=== PATIENT | male | born 1970 | race American Indian/Alaskan Native ===

== ENCOUNTER 2017-03-28 18:29 | Emergency (ER) | payer SELFPAY ==
[2017-03-28] MEDS ORDERED: DILAUDID IV ONE ×2 (19:12→21:23)
[2017-03-28] MEDS ORDERED: NACL 0.9% 1000 ML 1,000 ML IV ONE (19:12)
[2017-03-28] MEDS ORDERED: ZOFRAN IV ONE (19:12)
[2017-03-28] MEDS ORDERED: PROTONIX IV ONE (19:13)
--- NOTE | 2017-03-28 19:15 | Emergency Department Report ---
HPI - General Chief Complaint: Abdominal Pain Time Seen by Provider: 03/28/17 19:11 - HPI HPI: She is a 46-year-old -[place] male who presented to the ED with left upper quadrant abdominal pain. Pain has started for 3 weeks and has increasingly worsened. Patient has not tried any medication for his symptoms. He stated that the pain is located left upper quadrant 5 out of 10 radiating stool left lower quadrant. Pain is not accompanied with any vomiting, nausea and diarrhea. Patient describes the quality of pain as sharp without any exacerbating or alleviating factors. Patient denies any anorexia pain appears to be colicky in nature. no Constipation. ED Past Medical Hx - Past Medical History Previous Medical History?: Yes Hx Hypertension: Yes Hx Arthritis: Yes - Surgical History Past Surgical History?: Yes Additional Surgical History: Hernia repair in 2000 - Social History Smoking Status: Never Smoker Substance Use Type: Alcohol - Medications Home Medications: Home Medications Medication Instructions Recorded Confirmed Last Taken Type Lisinopril [Zestril TAB] 40 mg PO QDAY 03/28/17 03/28/17 03/28/17 History Omeprazole 40 mg PO DAILY #30 capsule. 03/28/17 Unknown Rx traMADol [Ultram 50 MG tab] 50 mg PO Q6HR PRN #14 tablet 03/28/17 Unknown Rx ED Review of Systems ROS: Stated complaint: ABDOMINAL/BACK PAIN Other details as noted in HPI Comment: All other systems reviewed and negative Cardiovascular: chest pain Gastrointestinal: abdominal pain Physical Exam - Physical Exam Vital Signs: Vital Signs 03/28/17 18:41 Temperature 98.3 F Pulse Rate 114 H Respiratory 20 Rate Blood Pressure 120/65 O2 Sat by Pulse 97 Oximetry Physical Exam: Vital signs reviewed. Gen. alert and oriented 3 in no distress Head atraumatic normocephalic Eyes PERR LA EOMI Chest regular rate and rhythm normal S1-S2 lungs clear bilaterally Abdomen soft nondistended, left upper quadrant tenderness. Right lower quadrant palpated with conviction showed no tenderness rebound or guarding. Back no point tenderness paravertebral tenderness Neuro no focal deficit. Psych normal mood. ED Course Vital Signs 03/28/17 18:41 Temperature 98.3 F Pulse Rate 114 H Respiratory 20 Rate Blood Pressure 120/65 O2 Sat by Pulse 97 Oximetry - Reevaluation(s) Reevaluation #1: 03/28/17 23:26 Discussed at length patient's CT finding with him, Jose Angel that since he isn't having any right lower quadrant pain, no fever, or white count, acute appendicitis is very unlikely. I discussed the CT findings along with the patient's clinical presentation to the surgeon weatherization crew leader . He Agreed That the Appendicitis Is Very Unlikely in This Case and That He Recommended the Patient Follow-Up with Him in the Office Tomorrow Morning. He Agrees to See the Patient. This Was Again Discussed with the Patient Was Agreed with This Plan. Return to ED with Fever Worsening Pain. ED Medical Decision Making - Lab Data Result diagrams: 03/28/17 19:24 03/28/17 19:24 Critical care attestation.: If time is entered above; I have spent that time in minutes in the direct care of this critically ill patient, excluding procedure time. ED Disposition Clinical Impression: Abdominal pain, Gastritis Disposition: DC-01 TO HOME OR SELFCARE Is pt being admited?: No Does the pt Need Aspirin: No Condition: Stable Instructions: Gastritis (ED) Prescriptions: Omeprazole 40 mg PO DAILY #30 capsule. traMADol [Ultram 50 MG tab] 50 mg PO Q6HR PRN #14 tablet PRN Reason: Pain Referrals: DANIEL CABALLERO MD [Staff Physician] - 3-5 Days LEIGHANN SHIRLEY MD [Staff Physician] - 3-5 Days Forms: Work/School Release Form(ED)
[2017-03-28 19:57] LABS: Basophils % (Auto) 0.6 % (0.0-1.8); Eosinophils % (Auto) 1.4 % (0.0-4.3); Hematocrit 41.9 % (35.5-45.6); Hemoglobin 14.5 gm/dl (11.8-15.2); Mean Corpuscular HGB Conc 35 % (32-34); Mean Corpuscular Hemoglobin 30 pg (28-32); Mean Corpuscular Volume 85 fl (84-94); Platelet Count 250 K/mm3 (140-440); Red Blood Count 4.91 M/mm3 (3.65-5.03); White Blood Count 8.2 K/mm3 (4.5-11.0)
[2017-03-28 20:11] LABS: INR 1.08 (0.87-1.13)
[2017-03-28 20:12] LABS: Partial Thromboplastin Time 30.9 Sec. (24.2-36.6)
--- NOTE | 2017-03-28 20:23 | XRay Report ---
FINAL REPORT PROCEDURE: Chest. TECHNIQUE: Chest radiograph anteroposterior view. CPT 82542 HISTORY: Chest pain. COMPARISON: No prior studies are available for comparison. FINDINGS: The radiograph is slightly underpenetrated. The heart and mediastinum appear normal. The lungs are grossly clear. There are no pleural effusions. The regional skeleton appears intact. IMPRESSION: No evidence of acute disease.
[2017-03-28 20:33] LABS: Alanine Aminotransferase 76 units/L (7-56); Albumin/Globulin Ratio 1.1 %; Alkaline Phosphatase 68 units/L (35-129); Anion Gap 18 mmol/L; BUN/Creatinine Ratio 9.09; Blood Urea Nitrogen 10 mg/dL (9-20); Calcium 9.3 mg/dL (8.4-10.2); Carbon Dioxide 27 mmol/L (22-30); Chloride 100.1 mmol/L (98-107); Glucose 111 mg/dL (75-100); Potassium 4.3 mmol/L (3.6-5.0); Sodium 141 mmol/L (137-145); Total Protein 7.7 g/dL (6.3-8.2)
[2017-03-28 22:19] VITALS: BP 118/77
--- NOTE | 2017-03-28 22:28 | Cat Scan Report ---
FINAL REPORT PROCEDURE: CT abdomen and pelvis with contrast. TECHNIQUE: Computerized axial tomography of the abdomen and pelvis was performed after the IV injection of iodinated nonionic contrast. HISTORY: Severe abdominal pain. COMPARISON: No prior studies are available for comparison. FINDINGS: The lung bases are clear. There are no pleural effusions. The heart size is normal. The liver, spleen and pancreas appear normal. The gallbladder is present. The adrenal glands are not enlarged. Both kidneys appear normal in size and configuration. The abdominal aorta has a normal caliber. There is no retroperitoneal adenopathy. The unopacified gastrointestinal tract is unremarkable. The appendix is present and measures between 6.5 millimeters and 8.3 millimeters in diameter. The maximum diameter is only mildly enlarged. The majority of the appendix has a normal caliber. There is a suggestion of minimal infiltration of adjacent fat, but this is not diagnostic. My suspicion for acute appendicitis is quite low, however clinical correlation is recommended. This report should not deter referral to a general surgeon if acute appendicitis is suspected clinically. There are no fluid collections to suggest an abscess. The bladder appears normal. The seminal vesicles and prostate appear normal. The regional skeleton appears intact. IMPRESSION: Question very early appendicitis versus normal study. Clinical correlation recommended.
--- NOTE | 2017-03-28 22:33 | Cat Scan Report ---
FINAL REPORT PROCEDURE: CT angiogram chest with contrast. TECHNIQUE: Computerized tomographic angiography of the chest was performed after the IV injection of iodinated nonionic contrast including image processing. The image data was postprocessed using 2-dimensional multiplanar reformatted (MPR) and 3-dimensional (MIP and/or volume rendered) techniques. HISTORY: Chest pain. COMPARISON: No prior studies are available for comparison. FINDINGS: The trachea and central bronchi appear normal. The thoracic aorta has a normal caliber without evidence of dissection. The pulmonary arteries enhance normally. There are no definite filling defects to indicate pulmonary embolism. There is no mediastinal adenopathy. The heart size is normal. There are no pleural effusions. The lungs are clear and well expanded. The thoracic skeleton appears intact. IMPRESSION: No evidence of pulmonary embolism. No significant abnormality.
== END 2017-03-28 23:30 | disposition home or self-care (01) ==
LOC: ED 18:29
DX: K29.70 Gastritis, unspecified, without bleeding (principal); R10.12 Left upper quadrant pain; M19.90 Unspecified osteoarthritis, unspecified site; I10 Essential (primary) hypertension; Z88.0 Allergy status to penicillin
CPT/HCPCS: 36415; 71010; 71275; 74177; 80053; 82550; 84484; 85025; 85379; 85610; 85730; 93005; 93010; 96361; 96374; 96375; 96376; 99285; C9113; J1170; J2405; J7030; Q9967